=== PATIENT | female | born 1990 | race Caucasian/White ===

== ENCOUNTER 2022-01-22 03:56 | Emergency (ER) | payer MEDICAID ==
[~2022-01-22] VITALS: Ht 172.7 cm; Wt 68.0 kg
--- NOTE | 2022-01-22 04:12 | NUR ---
pt in room 4a c/o c/p says mid chest to back. pt states pain is a 3 or [address] Iyer made aware of pt in room.
--- NOTE | 2022-01-22 04:13 | NUR ---
Dr. Iyer at bedside for MSE.
[2022-01-22] MEDS ORDERED: ASPIRIN 81 MG TAB.CHEW ONE (04:30)
[2022-01-22] MEDS ORDERED: ASPIRIN 81 MG TAB.CHEW PO ONE (04:30)
--- NOTE | 2022-01-22 04:53 | NUR ---
pt ambulated to the bathroom without dizziness no c/o of issues with ambulation.
[2022-01-22 05:02] LABS: ALANINE AMINOTRANSFERASE 33 U/L (14-59); ALKALINE PHOSPHATASE 97 U/L (50-136); ASPARTATE AMINOTRANSFERASE 14 U/L (15-37); BILIRUBIN,DIRECT 0.1 mg/dL (0.0-0.2); BILIRUBIN,TOTAL 0.3 mg/dL (0.2-1.0); CARBON DIOXIDE 28 mmol/L (21-32); CHLORIDE 104 mmol/L (98-107); CREATININE 0.7 mg/dL (0.6-1.3); GLUCOSE 106 mg/dL (74-106); POTASSIUM 3.8 mmol/L (3.5-5.1); UREA NITROGEN, BLOOD 13 mg/dL (7-18)
[2022-01-22 05:19] LABS: HEMATOCRIT 37.2 % (31.2-41.9); MEAN CORPUSCULAR HEMOGLOBIN 26.5 uug (24.7-32.8); MEAN CORPUSCULAR VOLUME 78.1 fL (75.5-95.3); PLATELET COUNT (AUTO) 232 K/uL (179-408)
[2022-01-22] MEDS ORDERED: LORAZEPAM 1 MG TABLET ONE (06:10)
[2022-01-22] MEDS ORDERED: LORAZEPAM 0.5 MG TABLET PO ONE (06:15)
--- NOTE | 2022-01-22 07:00 | NUR ---
Patient discharged to home in stable condition. Written and verbal after care instructions given. Patient verbalizes understanding of instructions. Stressed follow up or return to ER for worsening s/s.
[2022-01-22 07:01] VITALS: BP 130/80
== END 2022-01-22 07:03 | disposition home or self-care (01) ==
LOC: ER 04:06
DX: R07.9 Chest pain, unspecified (principal); R06.00 Dyspnea, unspecified; F41.9 Anxiety disorder, unspecified; Z20.822 Contact with and (suspected) exposure to COVID-19; F17.290 Nicotine dependence, other tobacco product, uncomplicated; Z88.0 Allergy status to penicillin
CPT/HCPCS: 36415; 71045; 84484; 85025; 93005; A4663